=== PATIENT | male | born 1985 | race African-American/Black ===

== ENCOUNTER 2016-08-05 23:48 | Emergency (ER) | payer OTHER ==
[~2016-08-05] VITALS: Ht 188 cm; Wt 79.4 kg
[2016-08-06 00:30] VITALS: BP 133/76
[2016-08-06] MEDS ORDERED: HYDR-971 PO (00:47)
[2016-08-06] MEDS ORDERED: AMOX500C PO (00:47)
--- NOTE | 2016-08-06 00:48 | PHYS DOC ---
Past Medical History Past Medical History: Other Additional Past Medical Histor: pancreatitis Past Surgical History: No Surgical History Alcohol Use: None Drug Use: None Adult General Chief Complaint Chief Complaint: DENTAL PROBLEM HPI HPI Patient is a 30 year old male presents emergency department stating that he's been having upper right back dental pain for the last 2 weeks. He is been trying aspirin [id number] Orajel and mouth sore relief with no discomfort noted. Patient denies any fever, chills or any nausea vomiting. Patient denies having a dentist in which she can follow-up with. Review of Systems Review of Systems Constitutional: Denies fever or chills [] Eyes: Denies change in visual acuity, redness, or eye pain [] HENT: Denies nasal congestion or sore throat. Dental pain Respiratory: Denies cough or shortness of breath [] Cardiovascular: No additional information not addressed in HPI [] GI: Denies abdominal pain, nausea, vomiting, bloody stools or diarrhea [] : Denies dysuria or hematuria [] Musculoskeletal: Denies back pain or joint pain [] Integument: Denies rash or skin lesions [] Neurologic: Denies headache, focal weakness or sensory changes [] Allergies Allergies Allergies Coded Allergies Type Severity Reaction Last Updated Verified No Known Drug Allergies 05/05/15 No Physical Exam Physical Exam Constitutional: Well developed, well nourished, no acute distress, non-toxic appearance. [] HENT: Normocephalic, atraumatic, bilateral external ears normal, oropharynx moist, no oral exudates, nose normal. Bilateral tympanic membranes appear to be normal. Throat with no exudate no erythematous noted. Patient does appear to have a broken off tooth at the #3 area. No abscess appears to be noted at this time. Eyes: PERRLA, EOMI, conjunctiva normal, no discharge. [] Neck: Normal range of motion, no tenderness, supple, no stridor. [] Cardiovascular:Heart rate regular rhythm, no murmur [] Lungs & Thorax: Bilateral breath sounds clear to auscultation [] Skin: Warm, dry, no erythema, no rash. [] Back: No tenderness Extremities: No tenderness, no cyanosis, no clubbing, ROM intact, no edema. [] Neurologic: Alert and oriented X 3, normal motor function, normal sensory function, no focal deficits noted. [] Psychologic: Affect normal, judgement normal, mood normal. [] EKG EKG [] Radiology/Procedures Radiology/Procedures [] Course & Med Decision Making Course & Med Decision Making Pertinent Labs and Imaging studies reviewed. (See chart for details) Patient will be provided with hydrocodone to take for pain and discomfort at home. Also recommended ibuprofen 800 mg every 8 hours. Patient will be provided with hydrocodone for severe pain and discomfort he was instructed that this medication will cause drowsiness do not take any alert and oriented. Patient will be provided with a dentist list. He'll also be provided with a note for work tomorrow. Signs symptoms to return back to emergency department as been provided. Patient agrees with discharge instructions treatment regimens and follow-up recommendations. [] Dragon Disclaimer Dragon Disclaimer This electronic medical record was generated, in whole or in part, using a voice recognition dictation system. Departure Departure Impression: Primary Impression: Pain, dental Disposition: HOME, SELF-CARE Condition: STABLE Referrals: NO PCP (PCP) Patient Instructions: Dental Pain, [id number] Additional Instructions: Activity as tolerated. Ibuprofen 800 mg every 8 hours with food stop taking few develop an upset stomach. Hydrocodone for severe pain and discomfort. This medication will cause drowsiness do not take any be alert and oriented. Antibiotics as prescribed take all the medications until they are completely gone. You may also try dental wax [id number] to place over the area to help with pain and discomfort. Follow-up with the dentist within the next week. Return back to emergency prior signs symptoms of become worse. Scripts Hydrocodone/Apap 5-325 (Fountain 5-325 Tablet)1 Each Tablet1 Tab PO PRN Q6HRS PRN PAIN #10 TAB Prov:BRENDEN HOSKINS [employer]ATOR 08/06/16 Amoxicillin 500 Mg Capsule1 Cap PO QID #40 CAP Prov:BRENDEN HOSKINS [employer] MACH[employer] OPERATOR 08/06/16 BRENDEN HOSKINS [employer] MACH[employer] OPERATOR Aug 06, 2016 00:48
== END 2016-08-06 01:07 | disposition home or self-care (01) ==
LOC: ER 23:48
DX: K08.89 Other specified disorders of teeth and supporting structures (principal)
CPT/HCPCS: 99283

== ENCOUNTER 2017-09-25 20:02 | Emergency (ER) | payer SELFPAY ==
[2017-09-25] MEDS: HYDROcodone/APAP 5/325MG 1 TAB TABLET PO (20:59)
== END 2017-09-25 21:56 | disposition home or self-care (01) ==
LOC: ER 20:02
DX: S39.012A Strain of muscle, fascia and tendon of lower back, initial encounter (principal); X58.XXXA Exposure to other specified factors, initial encounter; Y93.89 Activity, other specified; Y99.8 Other external cause status; Y92.89 Other specified places as the place of occurrence of the external cause
CPT/HCPCS: 72100; 99284